=== PATIENT | male | born 1980 | race Caucasian/White ===

== ENCOUNTER → 2020-12-05 | Outpatient (CLI) | payer BC, OTHER ==
[2020-12-05 13:20] LABS: BUN/CREATININE RATIO 11 (0-10)
[2020-12-06 10:13] LABS: HBSAG SCREEN Negative (Negative); HEP A AB, IGM Negative (Negative); HEP B CORE AB, IGM Negative (Negative); HEP C VIRUS AB <0.1 (0.0-0.9)
[2020-12-06 12:13] LABS: ALPHA-1-ANTITRYPSIN, SERUM 117 mg/dL (95-164)
[2020-12-06 14:13] LABS: LIVER-KIDNEY MICROSOMAL AB 2.4 Units (0.0-20.0)
[2020-12-06 16:13] LABS: ACTIN (SMOOTH MUSCLE) ANTIBODY 8 Units (0-19); MITOCHONDRIAL (M2) ANTIBODY <20.0 Units (0.0-20.0)
== END ==
LOC: LAB 10:52
PROVIDERS: Internal Medicine; Internal Medicine Gastroenterology
DX: D89.9 Disorder involving the immune mechanism, unspecified (principal); M25.50 Pain in unspecified joint; R76.8 Other specified abnormal immunological findings in serum; R74.01 Elevation of levels of liver transaminase levels
CPT/HCPCS: 36415; 80053; 80074; 82103; 82390; 83516; 86376